=== PATIENT | female | born 1950 | race Caucasian/White ===

== ENCOUNTER 2019-02-26 19:54 | Emergency (ER) | payer SELFPAY ==
[~2019-02-26] VITALS: Ht 165.1 cm; Wt 95.3 kg
[2019-02-26 20:10] VITALS: BP 161/63
--- NOTE | 2019-02-26 20:22 | NUR ---
PT AMBULATED TO LOBBY.
--- NOTE | 2019-02-26 20:51 | NUR ---
PT AMBULATED TO ER BED 03
[2019-02-26 21:01] LABS: BASOPHILS % (AUTO) 0.6 % (0.0-2.0); EOSINOPHILS % (AUTO) 0.9 % (0.0-4.0); HEMATOCRIT 39.7 % (36-48); HEMOGLOBIN 13.7 g/dL (12.0-16.0); LYMPHOCYTES # (AUTO) 0.5 K/uL (2.5-16.5); LYMPHOCYTES % (AUTO) 15.9 % (20.5-51.1); MEAN CORPUSCULAR HEMOGLOBIN 34 pg (27-31); MEAN CORPUSCULAR HGB CONC 35 g/dL (33-37); MEAN CORPUSCULAR VOLUME 99.3 fL (80-94); MONOCYTES # (AUTO) 0.2 K/uL (0.8-1.0); MONOCYTES % (AUTO) 5.8 % (1.7-9.3); NEUTROPHILS # (AUTO) 2.4 K/uL (1.8-7.7); NEUTROPHILS % (AUTO) 76.8 % (42.2-75.2); PLATELET COUNT (AUTO) 69 K/uL (140-450); RED CELL DISTRIBUTION WIDTH 12.9 % (11.6-13.7); WHITE BLOOD COUNT (AUTO) 3.1 K/uL (4.8-10.8)
[2019-02-26 21:03] LABS: APPEARANCE,URINE CLEAR (CLEAR); BILIRUBIN,URINE NEGATIVE (NEGATIVE); BLOOD, URINE NEGATIVE (NEGATIVE); COLOR,URINE YELLOW (YELLOW); LEUKOCYTE ESTERASE ,URINE NEGATIVE (NEGATIVE); NITRITE, URINE NEGATIVE (NEGATIVE); PH,URINE 7.5 (5.0-9.0); UGLUCOSE NEGATIVE (NEGATIVE)
--- NOTE | 2019-02-26 21:04 | NUR ---
PT TO ED WITH C/O COUGH X 2 MOS. PT DENIES ANY SOB. LUNG SOUNDS CLEAR TO ASCULTATION. NO DISTRESS NOTED. PT PLACED INTO BED, PENDING MD PARSONS.
[2019-02-26] MEDS ORDERED: ALBUTEROL SULFATE/IPRATROPIU 3 ML SOL IH ONE (21:10)
[2019-02-26] MEDS ORDERED: DEXAMETHASONE 10 MG/ML VIAL IM ONE (21:10)
[2019-02-26 21:13] LABS: ANION GAP 9.1 (8-16); CARBON DIOXIDE 27.7 mmol/L (21-32); CREATININE 0.6 mg/dL (0.6-1.3); POTASSIUM 3.8 mmol/L (3.5-5.1)
[2019-02-26 21:18] LABS: ALBUMIN 3.7 g/dL (3.4-5.0); TOTAL BILIRUBIN 1.9 mg/dL (0.0-1.0)
--- NOTE | 2019-02-26 22:30 | NUR ---
PT REPORTS RELIEF OF SYMPTOMS POST LABOR RELATIONS REPRESENTATIVE AND BREATHING TX.
--- NOTE | 2019-02-26 23:31 | NUR ---
Patient discharged with v/s stable. Written and verbal after care instructions given and explained. Patient alert, oriented and verbalized understanding of instructions. Ambulatory with steady gait. All questions addressed prior to discharge. ID band removed. Patient advised to follow up with PMD. Rx of PREDNISONE, Z-PACK, PROAIR given. Patient educated on indication of medication including possible reaction and side effects. Opportunity to ask questions provided and answered.
[2019-02-26 23:32] VITALS: BP 154/71
== END 2019-02-26 23:31 | disposition home or self-care (01) ==
LOC: MED 19:54
DX: J40 Bronchitis, not specified as acute or chronic (principal); I10 Essential (primary) hypertension; E07.9 Disorder of thyroid, unspecified; Z88.0 Allergy status to penicillin; Z88.5 Allergy status to narcotic agent; Z88.8 Allergy status to other drugs, medicaments and biological substances
CPT/HCPCS: 36415; 71045; 80053; 81003; 85025; 87040; 96372; 99284; J1100; J7620; 94640

== ENCOUNTER 2019-04-18 05:02 | Emergency (ER) | payer MEDICAID ==
[~2019-04-18] VITALS: Ht 162.6 cm; Wt 117.9 kg
[2019-04-18 05:02] VITALS: BP 165/74
--- NOTE | 2019-04-18 05:02 | NUR ---
Patient BIBA BLS, transferred to bed 5. RN evaluating patient at bedside.
--- NOTE | 2019-04-18 05:05 | NUR ---
BROUGHT IN BY AMBULANCE WITH C/O N/V, DIZZINESS , LEFT EAR PAIN,WITH VERTIGO 2 HOURS AGO.
[2019-04-18] MEDS ORDERED: DIAZEPAM 5 MG TAB PO ONE (05:25)
[2019-04-18] MEDS ORDERED: ONDANSETRON 4 MG/2 ML VIAL IVP ONE (05:25)
--- NOTE | 2019-04-18 05:35 | NUR ---
MEDICATED PER ERMDS ORDER , TOLERATED WELL
--- NOTE | 2019-04-18 07:00 | NUR ---
REPORT GIVEN TO LIZA SZYMANSKI.PATIENT ASLEEP, CALM , QUIET.
--- NOTE | 2019-04-18 07:11 | NUR ---
ASSUMED CARE OF PT AT THIS TIME.
[2019-04-18] MEDS ORDERED: MECLIZINE 25 MG TAB PO ONE (07:30)
[2019-04-18 08:05] LABS: BASOPHILS % (AUTO) 0.1 % (0.0-2.0); EOSINOPHILS % (AUTO) 0.6 % (0.0-4.0); HEMATOCRIT 37.6 % (36-48); LYMPHOCYTES # (AUTO) 0.5 K/uL (2.5-16.5); MEAN CORPUSCULAR HEMOGLOBIN 34 pg (27-31); MEAN CORPUSCULAR HGB CONC 35 g/dL (33-37); MEAN CORPUSCULAR VOLUME 99.1 fL (80-94); MONOCYTES # (AUTO) 0.1 K/uL (0.8-1.0); MONOCYTES % (AUTO) 6.5 % (1.7-9.3); PLATELET COUNT (AUTO) 71 K/uL (140-450); RED CELL DISTRIBUTION WIDTH 13.9 % (11.6-13.7)
[2019-04-18 08:09] LABS: WHITE BLOOD COUNT (AUTO) 1.6 K/uL (4.8-10.8)
[2019-04-18 08:12] LABS: CARBON DIOXIDE 23.8 mmol/L (21-32); CREATININE 0.5 mg/dL (0.6-1.3); POTASSIUM 3.8 mmol/L (3.5-5.1)
[2019-04-18 08:17] LABS: ALBUMIN 3.4 g/dL (3.4-5.0); TOTAL BILIRUBIN 1.6 mg/dL (0.0-1.0)
--- NOTE | 2019-04-18 08:23 | NUR ---
PT AMBULATORY TO RESTROOM. DENIES DIZZINESS, N/V. MADE AWARE OF PT STATUS.
[2019-04-18 08:25] LABS: LYMPHOCYTES % (AUTO) 29.8 % (20.5-51.1)
[2019-04-18 08:47] VITALS: BP 172/68
--- NOTE | 2019-04-18 08:48 | NUR ---
Patient discharged with v/s stable. Written and verbal after care instructions given and explained. Patient alert, oriented and verbalized understanding of instructions. Ambulatory with steady gait. All questions addressed prior to discharge. ID band removed. Patient advised to follow up with PMD. Rx of MECLZINE given. Patient educated on indication of medication including possible reaction and side effects. Opportunity to ask questions provided and answered.
--- NOTE | 2019-04-18 08:48 | NUR ---
IV removed, catheter intact and site benign. Applied folded 4x4 gauze and tape to stop bleeding.
[2019-04-18] MEDS ORDERED: MECL-272 PO (18:09)
[2019-04-18] MEDS ORDERED: SYN.1 PO ×2 (18:09→21:07)
[2019-04-18] MEDS ORDERED: TRAM50TA1 PO ×2 (18:09→21:07)
[2019-04-18] MEDS ORDERED: LISI5TAB18 PO (21:07)
== END 2019-04-18 08:48 | disposition home or self-care (01) ==
LOC: MED 05:02
DX: R42 Dizziness and giddiness (principal); R11.2 Nausea with vomiting, unspecified; D70.9 Neutropenia, unspecified; D69.6 Thrombocytopenia, unspecified; R74.0 Nonspecific elevation of levels of transaminase and lactic acid dehydrogenase [LDH]; I10 Essential (primary) hypertension; E11.9 Type 2 diabetes mellitus without complications; Z86.39 Personal history of other endocrine, nutritional and metabolic disease; Z88.0 Allergy status to penicillin; Z88.5 Allergy status to narcotic agent; Z88.6 Allergy status to analgesic agent
CPT/HCPCS: 36415; 80053; 85025; 96374; 99283; J2405; J8597

== ENCOUNTER 2019-04-18 16:48 | Inpatient (IN) | payer MEDICAID ==
[~2019-04-18] VITALS: Ht 165.1 cm; Wt 103.0 kg
--- NOTE | 2019-04-18 16:48 | NUR ---
PT BIBA BLS TO ER BED 10
[2019-04-18 16:52] VITALS: BP 172/74
[2019-04-18] MEDS ORDERED: NACL 0.9% 1,000 ML IV ONE (16:55)
[2019-04-18] MEDS ORDERED: ONDANSETRON 4 MG/2 ML VIAL IVP ONE (16:55)
--- NOTE | 2019-04-18 17:10 | NUR ---
PT WENT FOR CT.
--- NOTE | 2019-04-18 17:30 | NUR ---
PT BIBA WITH C/O NAUSEA AND VOMITING . PT STATES SHE GOT VERY NAUSEATED AND VOMITTED MULTIPLE TIMES AT HOME TODAY AND VERY DIZZY. PT WAS SEEN FOR THE SAME PROBLEM TODAY AND WAS SENT HOME WITH MECLIZINE, STATES DID NOT HELP. PT AOX4, ABLE T MAKE HER NEEDS. STATES TO HAVE WATSON 03/13. HX-- DM, BP , HYPOTHYROIDISM RX-- PCN, MORPHINE, CODIENE
[2019-04-18] MEDS ORDERED: MECLIZINE 25 MG TAB PO ONE (17:35)
[2019-04-18 17:48] LABS: APPEARANCE,URINE HAZY (CLEAR); BILIRUBIN,URINE NEGATIVE (NEGATIVE); BLOOD, URINE NEGATIVE (NEGATIVE); COLOR,URINE YELLOW (YELLOW); LEUKOCYTE ESTERASE ,URINE NEGATIVE (NEGATIVE); NITRITE, URINE NEGATIVE (NEGATIVE); PH,URINE 7.5 (5.0-9.0); UGLUCOSE 3+ (NEGATIVE)
[2019-04-18] MEDS ORDERED: ACETAMINOPHEN EXTRA STRENGTH 500 MG TAB PO ONE (17:55)
[2019-04-18] MEDS ORDERED: MECL-272 PO (18:09)
[2019-04-18] MEDS ORDERED: SYN.1 PO ×2 (18:09→21:07)
[2019-04-18] MEDS ORDERED: TRAM50TA1 PO ×2 (18:09→21:07)
[2019-04-18 18:11] LABS: PROTHROMBIN TIME 10.9 secs (10.8-13.4)
[2019-04-18 18:30] VITALS: BP 136/53
--- NOTE | 2019-04-18 18:30 | NUR ---
Patient will be admitted to care of DR. BURNS. Admited to [facility] FLOOR. Will go to [facility] [address]. Belongings list completed. Report to NESSA MARCH.
--- NOTE | 2019-04-18 18:30 | NUR ---
RECEIVED REPORT FROM ED NURSE DOROTA. PT AAOX4, NO C/O PAIN AT THIS TIME. IV ON RT WRIST 22 GA RUNNING IVF PER ORDER. RESPIRATIONS EVEN AND UNLABORED ON RA. ABD DISTENDED AND SOFT, ACTIVE BS THROUGHOUT. SKIN IS INTACT, WARM TO TOUCH. WILL CONTINUE TO MONITOR.
--- NOTE | 2019-04-18 18:45 | NUR ---
GIVEN BSC, PT HAS IMPAIRED GAIT AND WEAKNESS.
[2019-04-18] MEDS ORDERED: ZOLPIDEM 5 MG TAB PO PRN (19:00)
[2019-04-18] MEDS ORDERED: ACETAMINOPHEN 325 MG TAB PO PRN (19:00)
--- NOTE | 2019-04-18 19:00 | NUR ---
ENDORSED PT TO BARBACK NURSE. PT HAS NO SIGNS OF DISTRESS AT THIS TIME.
--- NOTE | 2019-04-18 19:01 | NUR ---
Received endorsement from AM shift RN; patient A/Ox4, able to make needs known, Pakistani speaking, on bedrest with bedside commode. Patient resting quietly; introduced self, updated board. No SOB or distress noted, on room air. IV site on right wrist, 22 gauge, saline locked. Skin intact. Bed in the lowest position, call light within reach. Initial assessment done. Will continue to monitor.
[2019-04-18 19:56] LABS: BARBITURATE, URINE NEG. ng/ml (NEG <=200); BENZODIAZEPINE, URINE NEG. ng/mL (NEG <=200); CANNABINOID, URINE NEG. ng/mL (NEG <=50); COCAINE, URINE NEG. ng/mL (NEG <=300); OPIATE, URINE NEG. ng/mL (NEG <=2000); PHENCYCLIDINE SCREEN,URINE NEG. ng/mL (NEG <=25)
[2019-04-18 19:57] LABS: FREE T4 (FREE THYROXINE) 1.06 ng/dL (0.76-1.46); MAGNESIUM 1.8 mg/dL (1.8-2.4); PHOSPHORUS 2.8 mg/dL (2.5-4.9); THYROID STIMULATING HORMONE 0.63 uIU/mL (0.34-3.74)
[2019-04-18] MEDS: DOCUSATE SODIUM 100 MG GELCAP PO SCH (20:40)
[2019-04-18] MEDS ORDERED: LISI5TAB18 PO (21:07)
[2019-04-18] MEDS ORDERED: DEXTROSE 50% 50 ML SYR IVP PRN (21:40)
[2019-04-18] MEDS ORDERED: MEDICATION REC. PHARMACY CONS. 1 EA MISC MC PRN (21:50)
[2019-04-18] MEDS ORDERED: MELATONIN 3 MG TAB PO PRN (21:50)
--- NOTE | 2019-04-18 21:55 | NUR ---
Checks made; no distress noted.
[2019-04-18] MEDS: NACL 0.9% 1,000 ML IV SCH (22:37)
[2019-04-19] VITALS: BP 131/61
--- NOTE | 2019-04-19 00:10 | NUR ---
Vitals taken; patient asleep, eyes closed, visible chest rise and fall noted.
--- NOTE | 2019-04-19 02:42 | NUR ---
Rounds done; patient asleep, eyes closed, visible chest rise and fall noted.
--- NOTE | 2019-04-19 04:50 | NUR ---
Checks made; patient resting comfortably. No distress noted.
[2019-04-19] MEDS: LEVOTHYROXINE 0.1 MG TAB PO SCH (05:38)
[2019-04-19] MEDS: BLOOD GLUCOSE MONITORING 1 DEV DEV FS SCH ×4 (05:41→21:39)
[2019-04-19] MEDS: INSULIN LISPRO SLIDING SCALE 100 UNITS/ML VIAL SUBQ PRN ×4 (05:44→21:44)
[2019-04-19 06:02] LABS: HEMATOCRIT 33.4 % (36-48); HEMOGLOBIN 11.8 g/dL (12.0-16.0); MEAN CORPUSCULAR HEMOGLOBIN 36 pg (27-31); MEAN CORPUSCULAR HGB CONC 35 g/dL (33-37); MEAN CORPUSCULAR VOLUME 100.1 fL (80-94); PLATELET COUNT (AUTO) 60 K/uL (140-450); RED BLOOD CELL COUNT(AUTO) 3.33 MIL/uL (4.20-5.40); RED CELL DISTRIBUTION WIDTH 13.5 % (11.6-13.7)
--- NOTE | 2019-04-19 06:10 | NUR ---
Vitals stable, due meds given. Will endorse to AM shift RN for continuity of care.
--- NOTE | 2019-04-19 07:22 | NUR ---
RECEIVED BEDSIDE REPORT FROM THE ORIENTATION AND MOBILITY INSTRUCTOR NURSE CHELO. PT IS ASLEEP, NO S/S OF ACUTE DISTRESS OR SOB NOTED. PT IS ON ROOM AIR, SKIN INTACT. IV SITE NOTED IN THE R WRIST 22 G, INFUSING NS 100 ML/HR. PT IS ON NEUTROPENIC ISOLATION DUE TO LOW WBC COUNT. FALL PRECAUTIONS IN PLACE, BEDSIDE COMMODE IS AT THE BEDSIDE. CALL LIGHT IS WITHIN REACH. WILL CONTINUE TO MONITOR PT.
[2019-04-19 07:34] LABS: WHITE BLOOD COUNT (AUTO) 1.3 K/uL (4.8-10.8)
[2019-04-19 07:36] LABS: LYMPHOCYTES % (MANUAL) 50 % (20-46); MONOCYTES % (MANUAL) 5 % (5-12)
[2019-04-19] MEDS: NACL 0.9% 1,000 ML IV SCH ×2 (07:50→17:56)
[2019-04-19 08:00] VITALS: BP 136/45
--- NOTE | 2019-04-19 08:22 | NUR ---
DR ESTRELLA MADE AWARE OF PT'S WBC COUNT 1.3
[2019-04-19 08:48] LABS: MAGNESIUM 1.7 mg/dL (1.8-2.4)
[2019-04-19] MEDS: traMADol 50 MG TAB PO SCH ×2 (09:00→20:29)
[2019-04-19] MEDS: DOCUSATE SODIUM 100 MG GELCAP PO SCH ×2 (09:10→20:28)
[2019-04-19] MEDS: MECLIZINE 25 MG TAB PO SCH ×2 (09:10→20:28)
[2019-04-19] MEDS: LISINOPRIL 5 MG TAB PO SCH (09:10)
[2019-04-19 09:11] LABS: ANION GAP 13.4 (8-16); CARBON DIOXIDE 23.9 mmol/L (21-32); CREATININE 0.4 mg/dL (0.6-1.3); POTASSIUM 3.3 mmol/L (3.5-5.1)
--- NOTE | 2019-04-19 09:13 | NUR ---
AM MEDS ADMINISTERED, PT TOLERATED WELL. PT REFUSED THE TRAMADOL, STATES THAT IT MAKES HER ITCH.
--- NOTE | 2019-04-19 09:39 | NUR ---
PT SEEN BY PHYSICAL THERAPY
[2019-04-19 16:00] VITALS: BP 128/42
[2019-04-19] MEDS: metFORMIN 500 MG TAB PO SCH (16:10)
--- NOTE | 2019-04-19 18:11 | NUR ---
DR ROSADO NOTIFIED OF PT'S POTASSIUM 3.3
[2019-04-19] MEDS ORDERED: POTASSIUM CHLORIDE 10 MEQ TABER PO ONE (19:15)
--- NOTE | 2019-04-19 19:20 | NUR ---
ENDORSED PT TO GOVERNMENT CLERK NURSE IN STABLE CONDITION
--- NOTE | 2019-04-19 19:30 | NUR ---
Received endorsement from AM shift RN; patient A/Ox4, able to make needs known, Tunisian speaking, on bedrest with bedside commode. Patient resting quietly; introduced self, updated board. No SOB or distress noted, on room air. IV site on right wrist, 22 gauge, running IVF at 100mL/hr.. Skin intact. Bed in the lowest position, call light within reach. Initial assessment done. Will continue to monitor.
--- NOTE | 2019-04-19 21:40 | NUR ---
Due meds given, tolerated well.
[2019-04-19] MEDS ORDERED: guaiFENesin 20 MG/ML UDC PO SCH (22:00)
--- NOTE | 2019-04-19 23:55 | NUR ---
Rounds done; patient asleep, eyes closed, visible chest rise and fall noted.
[2019-04-20] VITALS: BP 128/54
--- NOTE | 2019-04-20 02:15 | NUR ---
Checks made; patient asleep on right lateral side, visible chest rise and fall noted.
[2019-04-20] MEDS: NACL 0.9% 1,000 ML IV SCH ×2 (04:29→13:08)
--- NOTE | 2019-04-20 04:30 | NUR ---
PAtient complained of 9/[address] Santos aware. Orders made and will carry out.
[2019-04-20] MEDS ORDERED: traMADol 50 MG TAB PO SCH (04:45)
[2019-04-20] MEDS: LEVOTHYROXINE 0.1 MG TAB PO SCH (05:44)
[2019-04-20] MEDS: BLOOD GLUCOSE MONITORING 1 DEV DEV FS SCH ×2 (05:48→12:08)
--- NOTE | 2019-04-20 06:22 | NUR ---
Vitals stable, due meds given. Will endorse to AM shift RN for continuity of care.
[2019-04-20 06:24] LABS: ANION GAP 8.9 (8-16); CARBON DIOXIDE 27.8 mmol/L (21-32); CREATININE 0.4 mg/dL (0.6-1.3); POTASSIUM 3.7 mmol/L (3.5-5.1)
[2019-04-20 06:52] LABS: HEMATOCRIT 35.9 % (36-48); HEMOGLOBIN 12.4 g/dL (12.0-16.0); MEAN CORPUSCULAR HEMOGLOBIN 35 pg (27-31); MEAN CORPUSCULAR HGB CONC 35 g/dL (33-37); MEAN CORPUSCULAR VOLUME 100.1 fL (80-94); PLATELET COUNT (AUTO) 70 K/uL (140-450); RED BLOOD CELL COUNT(AUTO) 3.59 MIL/uL (4.20-5.40); RED CELL DISTRIBUTION WIDTH 14.1 % (11.6-13.7)
[2019-04-20 06:53] LABS: MAGNESIUM 1.4 mg/dL (1.8-2.4); PHOSPHORUS 4.1 mg/dL (2.5-4.9)
--- NOTE | 2019-04-20 07:05 | NUR ---
PT RECEIVED FROM NIGHT RN, TONY DUNBAR. PT IN BED AAOX4. 22G IV TO R WRIST INFUSING NS AT 100 ML/HR. NO SIGNS OF ACUTE DISTRESS AT THIS TIME. WILL CONTINUE TO ASSESS FOR CHANGES IN CONDITION.
[2019-04-20 08:00] VITALS: BP 139/60
[2019-04-20 08:37] LABS: WHITE BLOOD COUNT (AUTO) 1.8 K/uL (4.8-10.8)
[2019-04-20 08:38] LABS: EOSINOPHILS % (MANUAL) 2 % (0-4); LYMPHOCYTES % (MANUAL) 48 % (20-46); MONOCYTES % (MANUAL) 4 % (5-12)
[2019-04-20] MEDS: metFORMIN 500 MG TAB PO SCH (08:53)
--- NOTE | 2019-04-20 08:58 | NUR ---
PATIENT HAS BEEN SCREENED AND CATEGORIZED MODERATE NUTRITION RISK. PATIENT WILL BE SEEN WITHIN 3-5 DAYS OF ADMISSION. 04/21/[address]
[2019-04-20] MEDS: MECLIZINE 25 MG TAB PO SCH (09:02)
[2019-04-20] MEDS: LISINOPRIL 5 MG TAB PO SCH (09:02)
[2019-04-20] MEDS: DOCUSATE SODIUM 100 MG GELCAP PO SCH (09:02)
[2019-04-20] MEDS: ONDANSETRON 4 MG/2 ML VIAL IVP PRN ×2 (09:03→13:07)
[2019-04-20] MEDS: traMADol 50 MG TAB PO SCH (09:04)
--- NOTE | 2019-04-20 09:09 | NUR ---
PT SITTING AT BEDSIDE. PT STATED SHE WAS NAUSEATED AFTER BREAKFAST. ORDERED ZOFRAN ADMINISTERED AND EMESIS BAG WAS GIVEN TO PATIENT. PT EDUCATED ABOUT CALLING FOR HELP WHEN NEEDING TO GET OUT OF BED AND VERBALIZED UNDERSTANDING. WILL CONTINUE TO ASSESS FOR EFFECTIVENESS OF ZOFRAN.
[2019-04-20] MEDS ORDERED: MAGNESIUM OXIDE 400 MG TAB PO SCH (10:00)
[2019-04-20] MEDS ORDERED: ONDA4TAB PO (10:14)
[2019-04-20] MEDS ORDERED: METF500T PO (10:14)
--- NOTE | 2019-04-20 12:15 | NUR ---
PT INFORMED OF PENDING DISCHARGE, AND SHE STATED SHE CANNOT GO HOME BECAUSE HER NAUSEA AND DIZZINESS IS STILL PRESENT. SHE STATED "I DON'T WANT TO GO HOME AND BE BACK TONIGHT." DR. ROSADO NOTIFIED AND CAME TO BEDSIDE TO TALK TO PT. DR. ROSADO WILL ORDER PHENERGAN AND STATED ZOFRAN AND PHENERGAN CAN BE GIVEN TOGETHER PRN.
[2019-04-20] MEDS ORDERED: PROMETHAZINE 25 MG TAB PO PRN (12:20)
[2019-04-20] MEDS: INSULIN LISPRO SLIDING SCALE 100 UNITS/ML VIAL SUBQ PRN (12:22)
--- NOTE | 2019-04-20 13:07 | NUR ---
PT GIVEN ORDERED PHENERGAN AND ZOFRAN FOR NAUSEA. WILL REASSESS PT. BREATHING EVEN AND UNLABORED. PT TALKING ON PHONE. PT STATED NAUSEA DID NOT ALLOW HER TO EAT LUNCH. NO SIGNS OF ACUTE DISTRESS AT THIS TIME.
[2019-04-20 13:49] VITALS: BP 139/64
[2019-04-20] MEDS ORDERED: MAG SULF 2000 MG/WATER PREMIX 50 ML IV ONE (14:50)
[2019-04-20] MEDS ORDERED: DIPH25SG5 PO (15:29)
[2019-04-20] MEDS ORDERED: PROM25TA27 PO (15:29)
[2019-04-20] MEDS ORDERED: MAGNESIUM SULFATE 1GM in DEXTROSE 5% 100 ML PREMIX IV SCH (16:00)
--- NOTE | 2019-04-20 16:15 | NUR ---
DR ROSADO CALLED REGARDING MAG RIDER. PT HAS BEEN DISCHARGED AND MAG RIDER DUE AT 1600. DR. ROSADO STATED THAT WE CAN SKIP THE MAG RIDER AND DISCHARGE PT HOME BECAUSE SHE HAD PO MAGNESIUM TODAY. WILL CONTINUE WIT DISCHARGE.
--- NOTE | 2019-04-20 16:45 | NUR ---
PT GIVEN DISCHARGE PACKET WITH DISCHARGE INSTRUCTIONS REGARDING FOLLOW-UP WITH PCP, NEW PERSCRIPTION MEDICATIONS ELECTRONICALLY SENT TO PHARMACY, AND ROUTINE DISCHARGE INFORMATION. 22 G IV TO R WRIST REMOVED, CATHETER INTACT. PT CALLED FRIEND FOR RIDE HOME. PT WILL WAIT FOR RIDE.
--- NOTE | 2019-04-20 17:10 | NUR ---
PT WHEELED OFF UNIT WITH ALL BELONGINGS. PT LEFT IN CAR WITH FRIEND. PT STABLE AT DISCHARGE. ARM BANDS CUT OFF BEFORE LEAVING.
== END 2019-04-20 17:05 | disposition home or self-care (01) | DRG 48 ==
LOC: MED 16:48 → MMU 18:00
PROVIDERS: ADMIT General Practice; ATTEND General Practice
DX: G90.9 Disorder of the autonomic nervous system, unspecified (principal); D69.6 Thrombocytopenia, unspecified; D70.9 Neutropenia, unspecified; E11.65 Type 2 diabetes mellitus with hyperglycemia; E11.43 Type 2 diabetes mellitus with diabetic autonomic (poly)neuropathy; E03.9 Hypothyroidism, unspecified; E80.6 Other disorders of bilirubin metabolism; I10 Essential (primary) hypertension; G90.8 Other disorders of autonomic nervous system; Z88.5 Allergy status to narcotic agent; Z88.0 Allergy status to penicillin; Z88.8 Allergy status to other drugs, medicaments and biological substances; M19.90 Unspecified osteoarthritis, unspecified site; Z90.49 Acquired absence of other specified parts of digestive tract; Z90.710 Acquired absence of both cervix and uterus
CPT/HCPCS: 36415; 70450; 71045; 80048; 80305; 81003; 82150; 82948; 83036; 83690; 83735; 83880; 84100; 84439; 84443; 84484; 85025; 85610; 85730; 87081; 93005; 93880; 96374; 97110; 97116; 97161-GP; 97530; 99285; J1815; J2405; J7030; J8597; Q0092; Q0163; Q0169

== ENCOUNTER 2019-12-03 14:20 | Emergency (ER) | payer OTHER ==
[~2019-12-03] VITALS: Ht 160 cm; Wt 87.2 kg
[~2019-12-03 14:20] MED LIST: DIPH25SG5 PO; LISI5TAB18 PO; MECL-303 PO; METF500T PO; ONDA4TAB PO; PROM25TA27 PO; SYN.1 PO; TRAM50TA1 PO
[2019-12-03 14:23] VITALS: BP 131/43
--- NOTE | 2019-12-03 14:36 | NUR ---
PT AMBULATED TO BED 12, STEADY GAIT
--- NOTE | 2019-12-03 14:50 | NUR ---
C/O R TOE PAIN X 1 WEEK WITH SLIGHT SWELLING. PT REPORTS SHE HAD A BUNION REMOVED BETWEEN HER R 4TH AND 5TH DIGIT A 'WHILE AGO". PAIN 02/10 PT ALERT AND AWAKE, AMBULATORY WITH STEADY GAIT, VS STABLE MED HX: DM, HTN, THYROID
[2019-12-03] MEDS ORDERED: KETOROLAC 30 MG/ML VIAL IM ONE (15:10)
[2019-12-03] MEDS ORDERED: IBUPROFEN 600 MG TAB PO ONE (15:20)
[2019-12-03 15:27] VITALS: BP 131/43
== END 2019-12-03 15:27 | disposition home or self-care (01) ==
LOC: MED 14:20
DX: M21.611 Bunion of right foot (principal); E11.40 Type 2 diabetes mellitus with diabetic neuropathy, unspecified; E07.9 Disorder of thyroid, unspecified; I10 Essential (primary) hypertension; Z88.6 Allergy status to analgesic agent; Z88.0 Allergy status to penicillin; Z79.899 Other long term (current) drug therapy; Z79.84 Long term (current) use of oral hypoglycemic drugs
CPT/HCPCS: 99282; J1885